=== PATIENT | female | born 1955 | race Caucasian/White ===

== ENCOUNTER 2021-06-29 05:36 | Outpatient (CLI) | payer MEDICARE, OTHER ==
[~2021-06-29] VITALS: Ht 176.5 cm; Wt 52.6 kg
[2021-06-29] MEDS ORDERED: FLAX10004 PO (13:46)
[2021-06-29] MEDS ORDERED: ASPI-999 PO (13:46)
[2021-06-29] MEDS ORDERED: FISH1CAP15 PO (13:46)
[2021-06-29] MEDS ORDERED: MULT-141 PO (13:46)
[2021-06-29] MEDS ORDERED: PSYL0.4C2 PO (13:46)
== END 2021-06-29 16:20 | disposition home or self-care (01) ==
LOC: PREOP 05:36
PROVIDERS: ATTEND Surgery
DX: Z01.818 Encounter for other preprocedural examination (principal)

== ENCOUNTER 2021-07-06 08:50 | Day surgery (SDC) | payer MEDICARE, OTHER ==
[~2021-07-06] VITALS: Ht 176.5 cm; Wt 52.6 kg
[~2021-07-06 08:50] MED LIST: ASPI-999 PO; FISH1CAP15 PO; FLAX10004 PO; MULT-141 PO; PSYL0.4C2 PO
[2021-07-06] MEDS ORDERED: LACTATED RINGERS 1,000 ML IV STA (08:54)
[2021-07-06] MEDS ORDERED: LACTATED RINGERS 1,000 ML IV ONE (09:02)
[2021-07-06 09:25] VITALS: BP 116/74
--- NOTE | 2021-07-06 09:27 | Progress Note-Pre Operative ---
Pre-Operative Progress Note H&P Reviewed The H&P was reviewed, patient examined and no changes noted. Date Seen by Provider: Jul 06, 2021 Time Seen by Provider: : Date H&P Reviewed: Jul 06, 2021 Time H&P Reviewed: : Pre-Operative Diagnosis: positive cologuaMARINO Jackson DO Jul 06, 2021 09:27
[2021-07-06] MEDS ORDERED: PROPOFOL INJECTION 50 ML IV ONE (09:50)
[2021-07-06 11:13] VITALS: BP 94/53
[2021-07-06 11:15] VITALS: BP 124/59
--- NOTE | 2021-07-06 11:16 | Progress Note-Post Operative ---
Post-Operative Progess Note Surgeon (s)/Hide Washer (s) Surgeon MARINO CAPUTO DO Hide Washer: na Pre-Operative Diagnosis positive cologuard Post-Operative Diagnosis incomplete colonoscopy Procedure & Operative Findings Date of Procedure 07/06/21 Procedure Performed/Findings flexible sigmoidoscopy Anesthesia Type per excelsior machine operator Estimated Blood Loss Estimated blood loss (mL): none Specimens/Packing Specimens Removed na MARINO CAPUTO DO Jul 06, 2021 11:16
--- NOTE | 2021-07-06 11:19 | Discharge Inst-Simple/Standard ---
Discharge Inst-Standard Patient Instructions/Follow Up Plan of Care/Instructions/FU: [address] scan abdomen/pelvis with rectal contrast to be done tomorrow. Clear liquids today and tomorrow until ct scan completed. Activity as Tolerated: Yes Discharge Diet: Liquid Diet (clear liquids today, after ct scan tomorrow can do diet as tolerates.) MARINO CAPUTO DO Jul 06, 2021 11:19
[2021-07-06 12:05] VITALS: BP 109/63
--- NOTE | 2021-07-06 12:45 | Anesthesia-General Post-Op ---
MAC Patient Condition Mental Status/LOC: Same as Preop Cardiovascular: Satisfactory Nausea/Vomiting: Absent Respiratory: Satisfactory Pain: Controlled Complications: Absent Post Op Complications Complications None Follow Up Care/Instructions Patient Instructions None needed. Anesthesiology Discharge Order Discharge Order Patient is doing well, no complaints, stable vital signs, no apparent adverse anesthesia problems. No complications reported per nursing. TATE ZHOU CRNA Jul 06, 2021 12:45
--- NOTE | 2021-07-06 17:23 | OPERATIVE REPORT ---
DATE OF SERVICE: 07/06/2021 PREOPERATIVE DIAGNOSIS: Positive Cologuard. POSTOPERATIVE DIAGNOSIS: Incomplete colonoscopy. PROCEDURE PERFORMED: Flexible sigmoidoscopy. SURGEON: Marino Jameson DO. ANESTHESIA: Per SORT LINE WORKER. ESTIMATED BLOOD LOSS: None. COMPLICATIONS: None. INDICATIONS FOR PROCEDURE: The patient is a 65-year-old female with positive Cologuard needing screening colonoscopy. She understands the risks and benefits of the procedure and wished to proceed with the procedure. Consent was signed in the chart. DESCRIPTION OF PROCEDURE: The patient was taken to the endoscopy suite and placed in a left lateral recumbent position. Timeout was performed. Digital rectal exam was performed. No palpable polyps, masses or ulcerations. Scope was inserted in the rectum and to be advanced, a very significantly redundant sigmoid colon. The patient had to be repositioned multiple times and was able to pass through the majority of the sigmoid colon and then the scope was not able to be advanced any further. The patient was again repositioned multiple times without any improvement. The scope was then slowly retracted until completely removed. There were no polyps, masses or ulcerations within the sigmoid colon or rectum. Scope was then slowly retracted back until completely removed. The patient tolerated the procedure well. The patient will get a CT scan of the abdomen and pelvis with rectal contrast to further evaluate. She will follow up in the office in two weeks. RECOMMENDATIONS: The patient will stay on clear liquids today until a CT scan performed. Job ID: [id number] DocumentID: [id number] Dictated Date: 07/06/2021 11:21:11 Strapping Machine Operator Date: 07/06/2021 17:22:28 Dictated By: MARINO JAMESON DO
== END 2021-07-06 12:15 | disposition home or self-care (01) ==
LOC: ENDO 08:50
PROVIDERS: ATTEND Surgery
DX: R19.5 Other fecal abnormalities (principal); R19.4 Change in bowel habit; Z79.891 Long term (current) use of opiate analgesic; Z79.82 Long term (current) use of aspirin; Z79.899 Other long term (current) drug therapy; Z90.89 Acquired absence of other organs

== ENCOUNTER → 2021-07-07 | Outpatient (CLI) | payer MEDICARE, OTHER ==
[~2021-07-07] MED LIST changes: +DIATRIZOATE MEGLUM/SODIUM 37% 120 ML (GASTROGRAFIN) NG ONE
--- NOTE | 2021-07-07 10:03 | Diagnostic Imaging Report ---
PROCEDURE: CT abdomen and pelvis without contrast. TECHNIQUE: Multiple contiguous axial images were obtained through the abdomen and pelvis without the use of intravenous contrast. Auto Exposure Controls were utilized during the CT exam to meet ALARA standards for radiation dose reduction. INDICATION: Nonspecific intestinal obstruction. COMPARISON: No prior studies are available for comparison. FINDINGS: There is rectal contrast present. Contrast is seen within the rectum and sigmoid as well as the descending and transverse colon. There is poor distention of the right colon. No bowel wall thickening or definite mass is detected. The small bowel is nondistended. The liver and gallbladder are unremarkable. The pancreas and spleen are unremarkable. No adrenal mass is detected. No renal calculus or hydronephrosis is identified. The aorta is calcified but nonaneurysmal. No free fluid in the abdomen or pelvis is seen. There is no fluid collection. The bladder is unremarkable. No inflammatory changes are seen. The bony structures are nonacute. IMPRESSION: No significant abnormality is detected. Dictated by: Dictated on workstation # [id number]
== END ==
LOC: RAD FS 08:24
PROVIDERS: ATTEND Surgery
DX: K56.609 Unspecified intestinal obstruction, unspecified as to partial versus complete obstruction (principal)
CPT/HCPCS: 74176